=== PATIENT | male | born 1940 | race Two or more races ===

== ENCOUNTER → 2024-04-17 | Outpatient (CLI) | payer MEDICARE, SELFPAY ==
[2024-04-17 12:13] LABS: Albumin, Serum 4.3 gm/dL (3.4-4.8); Anion Gap 6 (7-16); BUN/Creatinine Ratio 16 Ratio (12-20); Blood Urea Nitrogen 23 mg/dL (9-23); Calcium 9.5 mg/dL (8.3-10.6); Calcium (Corrected) 9.5 mg/dL (8.5-10.1); Carbon Dioxide 27.1 mMol/L (20.0-31.0); Chloride 106 mMol/L (98-107); Creatinine (Component) 1.4 mg/dL (0.6-1.3); Glucose 165 mg/dL (74-106); Magnesium 1.9 mg/dL (1.6-2.6); Osmolality,Calculated 285 (275-295); Phosphorous 3.2 mg/dL (2.4-5.1); Potassium 4.3 mMol/L (3.4-5.1); Sodium 139 mMol/L (136-145); eGFR 50 See Note
== END | disposition home or self-care (01) ==
PROVIDERS: PCP Family Medicine; Referring Provider Family Medicine; Visit Provider Family Medicine
DX: N17.9 Acute kidney failure, unspecified (principal)
CPT/HCPCS: 36415; 80069; 83735

== ENCOUNTER → 2024-07-24 | Outpatient (CLI) | payer MEDICARE, SELFPAY ==
[2024-07-24 10:05] LABS: Collection Type, Urine Clean Catch; Squamous Epithelial Cell,Urine 0 /hpf (0-5)
[2024-07-24 10:24] LABS: Basophils % (Auto) 0 % (0-2.5); Eosinophils # (Auto) 0.3 Thou/mm3 (0.0-0.5); Eosinophils % (Auto) 3 % (0-10); Hematocrit 39.3 % (41.0-53.0); Hemoglobin 13.3 g/dL (13.5-16.0); Immature Granulocytes % (Auto) 0 % (0-0); Immature Granulocytes Auto 0.03 Thou/mm3 (0.00-0.00); Lymphocytes # (Auto) 2.2 Thou/mm3 (1.0-4.8); Lymphocytes % (Auto) 23 % (10-50); Mean Corpuscular HGB Conc 33.8 g/dl (31.0-37.0); Mean Corpuscular Hemoglobin 27.3 pg (25.0-35.0); Mean Corpuscular Volume 81 fL (80-100); Monocytes # (Auto) 0.8 Thou/mm3 (0.0-0.8); Monocytes % (Auto) 9 % (0-12); Neutrophils # (Auto) 6.2 Thou/mm3 (1.8-7.7); Neutrophils % (Auto) 65 % (37-80); Nucleated Red Blood Cell % 0 /100 WBC (0); Platelet Count 162 Thou/mm3 (140-440); RDW Standard Deviation 40.6 fL (35.1-43.9); Red Blood Count 4.87 Miln/mm3 (4.50-5.90); White Blood Count 9.5 Thou/mm3 (3.8-10.6)
[2024-07-24 10:29] LABS: Bilirubin,Urine Negative (Negative); Blood,Urine Negative (Negative); Clarity,Urine Clear (Clear/Hazy); Color,Urine Lt-Yellow (Lt Yel-Yel); Glucose, Urine Negative (Negative); Ketones,Urine Negative (Negative); Leukocyte Esterase,Urine Negative (Negative); Nitrite,Urine Negative (Negative); Protein,Urine Negative (Neg - Trace); RBC,Urine < 1 /hpf (0-3); Specific Gravity,Urine 1.013 (1.001-1.035); Urobilinogen,Urine Negative mg/dL (0.0-1.0); WBC,Urine 1 /hpf (0-5)
[2024-07-24 10:37] LABS: Creatinine MALB Rnd Ur 118 mg/dL (30-125); Microalbumin, Random Urine < 3 mg/L (0-300)
[2024-07-24 10:52] LABS: Alanine Aminotransferase 21 U/L (10-49); Albumin, Serum 4.2 gm/dL (3.4-4.8); Albumin/Globulin Ratio 2.2 (1.2-2.2); Alkaline Phosphatase 94 U/L (46-116); Anion Gap 8 (7-16); Aspartate Amino Transferase 25 U/L (0-34); BUN/Creatinine Ratio 15 Ratio (12-20); Blood Urea Nitrogen 22 mg/dL (9-23); Calcium 9.2 mg/dL (8.3-10.6); Calcium (Corrected) 9.2 mg/dL (8.5-10.1); Cardiac Risk Estimate 2.2 RATIO (4.0-6.7); Chloride 105 mMol/L (98-107); Cholesterol 121 mg/dL (132-200); Creatinine (Component) 1.5 mg/dL (0.6-1.3); Globulin 1.9 gm/dL (2.3-3.5); Glucose 145 mg/dL (74-106); HDL Cholesterol 55 mg/dL (40-60); LDL Cholesterol,Calculated 48 mg/dL (0-130); Osmolality,Calculated 281 (275-295); Potassium 4.4 mMol/L (3.4-5.1); Sodium 138 mMol/L (136-145); Total Protein 6.1 gm/dL (5.7-8.2); Triglycerides 89 mg/dL (30-150); eGFR 46 See Note
[2024-07-24 10:53] LABS: Glucose Estimated Average 174 mg/dL (80-131); Hemoglobin A1C 7.7 % Hgb (4.8-6.0)
== END | disposition home or self-care (01) ==
LOC: COPL 08:52
PROVIDERS: PCP Family Medicine; Referring Provider Family Medicine; Visit Provider Family Medicine
DX: Z00.00 Encounter for general adult medical examination without abnormal findings (principal); I25.10 Atherosclerotic heart disease of native coronary artery without angina pectoris; E11.59 Type 2 diabetes mellitus with other circulatory complications; E78.2 Mixed hyperlipidemia; I10 Essential (primary) hypertension
CPT/HCPCS: 36415; 80053; 80061; 81001; 82043; 82570; 83036; 84443; 85025

== ENCOUNTER → 2024-12-05 | Outpatient (CLI) | payer MEDICARE, SELFPAY ==
[2024-12-05 09:06] LABS: Glucose Estimated Average 154 mg/dL (80-131); Hemoglobin A1C 7.0 % Hgb (4.8-6.0)
[2024-12-05 09:14] LABS: Alanine Aminotransferase 15 U/L (10-49); Albumin, Serum 4.2 gm/dL (3.4-4.8); Alkaline Phosphatase 76 U/L (46-116); Anion Gap 10 (7-16); Aspartate Amino Transferase 22 U/L (0-34); BUN/Creatinine Ratio 11 Ratio (12-20); Bilirubin,Direct 0.4 mg/dL (0.0-0.3); Bilirubin,Total 1.1 mg/dL (0.3-1.2); Blood Urea Nitrogen 16 mg/dL (9-23); Calcium 8.9 mg/dL (8.3-10.6); Carbon Dioxide 25.1 mMol/L (20.0-31.0); Cardiac Risk Estimate 2.4 RATIO (4.0-6.7); Chloride 107 mMol/L (98-107); Cholesterol 115 mg/dL (132-200); Creatinine (Component) 1.5 mg/dL (0.6-1.3); Glucose 128 mg/dL (74-106); HDL Cholesterol 47 mg/dL (40-60); LDL Cholesterol,Calculated 51 mg/dL (0-130); Osmolality,Calculated 286 (275-295); Phosphorous 2.9 mg/dL (2.4-5.1); Potassium 4.5 mMol/L (3.4-5.1); Sodium 142 mMol/L (136-145); Total Protein 6.2 gm/dL (5.7-8.2); Triglycerides 85 mg/dL (30-150); Uric Acid 7.4 mg/dL (3.7-9.2); eGFR 46 See Note
== END | disposition home or self-care (01) ==
PROVIDERS: PCP Family Medicine; Referring Provider Family Medicine; Visit Provider Internal Medicine Cardiovascular Disease
DX: I12.9 Hypertensive chronic kidney disease with stage 1 through stage 4 chronic kidney disease, or unspecified chronic kidney disease (principal); E11.22 Type 2 diabetes mellitus with diabetic chronic kidney disease; N18.31 Chronic kidney disease, stage 3a; E78.00 Pure hypercholesterolemia, unspecified; Z95.1 Presence of aortocoronary bypass graft; E78.2 Mixed hyperlipidemia; I25.10 Atherosclerotic heart disease of native coronary artery without angina pectoris; E79.0 Hyperuricemia without signs of inflammatory arthritis and tophaceous disease
CPT/HCPCS: 36415; 80048; 80061; 80076; 83036; 84100; 84550